=== PATIENT | female | born 1950 | race Caucasian/White ===

== ENCOUNTER 2024-04-06 21:12 | Emergency (ER) | payer MEDICARE, BC ==
[~2024-04-06] VITALS: Ht 165.1 cm; Wt 62.6 kg
[2024-04-06 21:29] VITALS: BP 134/73; TEMP 97.4; O2SAT 98
[2024-04-06] MEDS ORDERED: ACETAMINOPHEN 325 MG TABLET ONE (23:04)
[2024-04-06] MEDS: ACETAMINOPHEN 325 MG TABLET PO ONE (23:06)
== END 2024-04-07 00:38 | disposition home or self-care (01) ==
LOC: ER 21:14
DX: S63.501A Unspecified sprain of right wrist, initial encounter (principal); S00.31XA Abrasion of nose, initial encounter; S00.211A Abrasion of right eyelid and periocular area, initial encounter; S00.81XA Abrasion of other part of head, initial encounter; Z88.0 Allergy status to penicillin; Z91.040 Latex allergy status; W01.0XXA Fall on same level from slipping, tripping and stumbling without subsequent striking against object, initial encounter; Y93.89 Activity, other specified; Y92.89 Other specified places as the place of occurrence of the external cause; Y99.8 Other external cause status
CPT/HCPCS: 70450-TC; 70486-TC; 72125-TC; 73110